=== PATIENT | male | born 1975 | race Caucasian/White ===

== ENCOUNTER 2019-04-23 15:11 | Outpatient (CLI) | payer MEDICARE, MEDICAID ==
[2019-04-23] MEDS ORDERED: SUCR500T PO (16:18)
[2019-04-23] MEDS ORDERED: calcitrol PO (16:18)
[2019-04-23] MEDS ORDERED: VIT-7 PO (16:18)
[2019-04-23 16:21] LABS: BASOPHILS # (AUTO) 0.04 x10^3/uL (0-0.1); BASOPHILS % (AUTO) 1 % (0-1); EOSINOPHILS # (AUTO) 0.14 x10^3/uL (0-0.4); EOSINOPHILS % (AUTO) 3 % (1-7); LYMPHOCYTES # (AUTO) 1.38 x10^3/uL (1-3.4); LYMPHOCYTES % (AUTO) 26 % (22-44); MD NO; MEAN CORPUSCULAR HEMOGLOBIN 33.2 pg (27.5-34.5); MEAN CORPUSCULAR HGB CONC 33.8 g/dL (33.2-36.2); MEAN CORPUSCULAR VOLUME 98.3 fL (81-97); MEAN PLATELET VOLUME 7.2 fL (7.4-10.4); MONOCYTES % (AUTO) 8 % (2-9); NEUTROPHILS # (AUTO) 3.32 x10^3/uL (1.8-6.8); NEUTROPHILS % (AUTO) 63 % (42-75); PLATELET COUNT 204 x10^3/uL (130-400); RED BLOOD COUNT 2.86 x10^6/uL (4.38-5.82); RED CELL DISTRIBUTION WIDTH 12.9 % (9.4-14.8)
[2019-04-23 16:28] LABS: ALBUMIN 3.5 g/dL (3.4-5.0); ANION GAP 13 mmol/L (5-15); CALCIUM 8.4 mg/dL (8.5-10.1); CHLORIDE 100 mmol/L (98-107)
[2019-04-23 16:34] LABS: INTERNATIONAL NORMALIZED RATIO 0.91 (0.93-1.1); PROTHROMBIN TIME 9.6 Seconds (9.6-11.5)
[2019-04-23 16:37] LABS: ALANINE AMINOTRANSFERASE 16 U/L (12-78); ALKALINE PHOSPHATASE 126 U/L (45-117); BILIRUBIN,TOTAL 0.5 mg/dL (0.2-1.0); TOTAL PROTEIN 7.2 g/dL (6.4-8.2)
== END 2019-04-23 23:59 | disposition home or self-care (01) ==
LOC: STAR 15:11
PROVIDERS: ATTEND Surgery
DX: Z01.818 Encounter for other preprocedural examination (principal)
CPT/HCPCS: 36415; 80053; 85025; 85610; 85730; 93005

== ENCOUNTER → 2019-12-31 | Outpatient (CLI) | payer MEDICARE, MEDICAID ==
[~2019-12-31] MED LIST: AMLO2.5T5 PO; B,C/1TAB PO; CALC0.5C9 PO; CALC400T40 PO; HYDR-3237 PO; ONDA4TAB13 PO; ROPI2TAB8 PO; SUCR500T PO; TUMS PO; VIT-7 PO; calcitrol PO
[2019-12-31 12:53] LABS: BASOPHILS % (AUTO) 2 % (0-1); EOSINOPHILS % (AUTO) 3 % (1-7); LYMPHOCYTES % (AUTO) 30 % (22-44); MEAN CORPUSCULAR HEMOGLOBIN 33.3 pg (27.5-34.5); MEAN CORPUSCULAR HGB CONC 32.6 g/dL (33.2-36.2); MEAN PLATELET VOLUME 7.4 fL (7.4-10.4); MONOCYTES % (AUTO) 13 % (2-9); NEUTROPHILS % (AUTO) 53 % (42-75); PLATELET COUNT 162 x10^3/uL (130-400); RED BLOOD COUNT 3.76 x10^6/uL (4.38-5.82); RED CELL DISTRIBUTION WIDTH 15.1 % (9.4-14.8)
[2019-12-31 12:54] LABS: MD NO
[2019-12-31 12:57] LABS: INTERNATIONAL NORMALIZED RATIO 0.96 (0.93-1.1); PROTHROMBIN TIME 10.2 Seconds (9.6-11.5)
[2019-12-31 13:08] LABS: ANION GAP 5 mmol/L (5-15); CALCIUM 9.2 mg/dL (8.5-10.1); CHLORIDE 98 mmol/L (98-107)
[2019-12-31 13:09] LABS: ALANINE AMINOTRANSFERASE 13 U/L (12-78); ALBUMIN 3.9 g/dL (3.4-5.0); ALKALINE PHOSPHATASE 41 U/L (45-117); BILIRUBIN,TOTAL 0.5 mg/dL (0.2-1.0); TOTAL PROTEIN 6.9 g/dL (6.4-8.2)
== END | disposition home or self-care (01) ==
LOC: STAR 11:23
PROVIDERS: ATTEND Surgery
DX: Z01.812 Encounter for preprocedural laboratory examination (principal); Z20.828 Contact with and (suspected) exposure to other viral communicable diseases; N18.6 End stage renal disease; I51.7 Cardiomegaly
CPT/HCPCS: 36415; 80053; 85025; 85610; 85730; 87635; 93005

== ENCOUNTER 2020-01-05 12:12 | Day surgery (SDC) | payer MEDICARE, MEDICAID ==
[~2020-01-05] VITALS: Ht 188 cm; Wt 72.4 kg
[~2020-01-05 12:12] MED LIST changes: +CEFAZOLIN 1,000 MG ONE; +DEXAMETHASONE 4 MG/ML, 1ML ONE; +ONDANSETRON 2MG/ML, 2ML ONE; +PHENYLEPHRINE 10 MG/ML ONE; +PROPOFOL 10 MG/ML, 20ML ONE
[2020-01-05 12:40] VITALS: BP 176/89
[2020-01-05] MEDS ORDERED: CHLORHEXIDINE 15 ML UDC ONE (12:48)
[2020-01-05] MEDS ORDERED: SODIUM CHLORIDE 0.9% 1,000 ML IV SCH (13:00)
[2020-01-05] MEDS ORDERED: CHLORHEXIDINE 15 ML UDC MM ONE (13:00)
[2020-01-05] MEDS ORDERED: BUPIVACAINE/PF 0.25% ONE (14:11)
[2020-01-05] MEDS ORDERED: LIDOCAINE/PF 1%, 30ML ONE (14:11)
[2020-01-05] MEDS ORDERED: HEPARIN 1,000 UNITS/ML, 10ML ONE (14:11)
[2020-01-05] MEDS ORDERED: PAPAVERINE 30 MG/ML, 2ML ONE (14:11)
[2020-01-05] MEDS ORDERED: PROTAMINE SULFATE 10 MG/ML, 5ML ONE (14:11)
[2020-01-05] MEDS ORDERED: FENTANYL PF 250 MCG/5ML ONE ×2 (15:01→15:31)
[2020-01-05] MEDS ORDERED: MIDAZOLAM 1 MG/ML, 2ML ONE (15:01)
[2020-01-05] MEDS ORDERED: EPHEDRINE 50 MG/ML, 1ML IVPush PRN (15:30)
[2020-01-05] MEDS ORDERED: OXYcodone 5 MG/5 ML ORAL.SOL UDC PO PRN (15:30)
[2020-01-05] MEDS ORDERED: MIDAZOLAM 1 MG/ML, 2ML IV PRN (15:30)
[2020-01-05] MEDS ORDERED: MEPERIDINE/PF 25MG/0.5ML IVPush PRN (15:30)
[2020-01-05] MEDS ORDERED: PROMETHAZINE 25 MG/ML, 1ML IVPush PRN (15:30)
[2020-01-05] MEDS ORDERED: ONDANSETRON 2MG/ML, 2ML IVPush PRN (15:30)
[2020-01-05] MEDS ORDERED: PROMETHAZINE 12.5 MG SUPP PR PRN (15:30)
[2020-01-05] MEDS ORDERED: HYDROmorphone 1 MG/ML, 1ML INJ IVPush PRN (15:30)
[2020-01-05] MEDS ORDERED: hydrALAzine 20 MG/ML, 1ML IV PRN (15:30)
[2020-01-05] MEDS ORDERED: ALBUTEROL SULFATE 2.5 MG/3 ML NPPB PRN (15:30)
[2020-01-05] MEDS ORDERED: LABETALOL 5MG/ML, 20ML IV PRN (15:30)
[2020-01-05] MEDS ORDERED: DIAZEPAM 5 MG/ML, 2ML IVPush PRN (15:30)
[2020-01-05] MEDS ORDERED: FENTANYL PF 100 MCG/2ML IV PRN (15:30)
[2020-01-05] MEDS ORDERED: DIPHENHYDRAMINE 50 MG/ML, 1ML IVPush PRN (15:30)
[2020-01-05] MEDS ORDERED: ACETAMINOPHEN 325 MG TABLET PO PRN (15:30)
[2020-01-05] MEDS ORDERED: OXYcodone 5 MG/5 ML ORAL.SOL UDC ONE (16:41)
[2020-01-05] MEDS ORDERED: FENTANYL PF 100 MCG/2ML ONE (17:10)
[2020-01-05] MEDS ORDERED: HYDROmorphone 1 MG/ML, 1ML INJ ONE (17:24)
== END 2020-01-05 19:05 | disposition home or self-care (01) ==
LOC: OUT 12:12
PROVIDERS: ATTEND Surgery
DX: Z45.2 Encounter for adjustment and management of vascular access device (principal); I12.9 Hypertensive chronic kidney disease with stage 1 through stage 4 chronic kidney disease, or unspecified chronic kidney disease; N18.6 End stage renal disease; E21.0 Primary hyperparathyroidism; F17.210 Nicotine dependence, cigarettes, uncomplicated; F12.90 Cannabis use, unspecified, uncomplicated; Z79.899 Other long term (current) drug therapy; Z99.2 Dependence on renal dialysis; Z98.890 Other specified postprocedural states
CPT/HCPCS: 36832; J0690; J1100; J1170; J1644; J2250; J2370; J2405; J2440; J2704; J3010; J7030; J2720